=== PATIENT | female | born 1945 | race Hispanic/Latino ===

== ENCOUNTER 2018-04-25 00:08 | Observation (INO) | payer SELFPAY ==
[2018-04-25] MEDS ORDERED: Ondansetron PF 4 MG/2 ML Vial ONE ×2 (00:42→10:00)
[2018-04-25 00:56] LABS: #Eosinphils 0.1 thou/uL (0.0-0.7); #Lymphocytes 2.2 thou/uL (1.20-3.40); #Monocytes 1.1 thou/uL (0.11-0.59); #Neutrophils 12.6 thou/uL (1.40-6.50); %Basophils 0.3 % (0.0-1.0); %Eosinophils 0.5 % (0.0-10.0); %Lymphocytes 13.4 % (21.0-51.0); %Monocytes 6.6 % (0.0-10.0); %Neutrophils 79.2 % (42.0-75.0); Hemoglobin 14.3 g/dL (12.0-16.0); Mean Corpuscular HGB CONC 33.9 g/dL (32.0-36.0); Mean Corpuscular Hemoglobin 29.6 pg (27.0-31.0); Mean Corpuscular Volume 87.5 fL (78.0-98.0); Mean Platelet Volume 8.2 fL (7.4-10.4); Platelet Count 264 thou/uL (130-400); RBC Distribution Width 12.4 % (11.5-14.5); Red Blood Cell (RBC) Count 4.83 mill/uL (4.20-5.40)
[2018-04-25 01:24] LABS: ALT (SGPT) 22 U/L (8-55); AST (SGOT) 21 U/L (5-34); Albumin 4.3 g/dL (3.4-4.8); Alkaline Phosphatase 108 U/L (40-150); Anion Gap 11 mmol/L (10-20); BUN (Urea Nitrogen) 18 mg/dL (9.8-20.1); Bilirubin, Total 1.6 mg/dL (0.2-1.2); Calc. Creatinine Clearance 0 mL/min (70-130); Calcium 10.8 mg/dL (7.8-10.44); Carbon Dioxide 24 mmol/L (23-31); Chloride 106 mmol/L (98-107); Estimated GFR-MDRD 73; Globulin 3.3 g/dL (2.4-3.5); Glucose 130 mg/dL (83-110); Lipase 18 U/L (8-78); Potassium 3.9 mmol/L (3.5-5.1); Protein, Total 7.6 g/dL (6.0-8.3); Sodium 137 mmol/L (136-145)
[2018-04-25] MEDS ORDERED: Morphine 4 MG/ML VIAL ONE (02:08)
[2018-04-25 02:33] LABS: Bilirubin Negative (Negative); Blood, Urine Small (Negative); Clarity CLEAR (Clear); Glucose, Urine (Dipstick) Negative (Negative); Leukocyte Small (Negative); Nitrite Negative (Negative); Protein, Urine (Dipstick) Negative (Neg-Trace); Specific Gravity, Urine 1.019 (1.002-1.036); pH, Urine 6.5 (5.0-9.0)
[2018-04-25 02:35] LABS: Bacteria/HPF 3+ HPF (None Seen); Hyaline Casts/LPF 0-3 HYALINE CAST LPF (0-3 Hyaline); Squamous Epithelial 0-3 HPF (0-3)
[2018-04-25] MEDS ORDERED: Piperacillin/Tazobactam 4.5 GM VIAL ONE (03:15)
[2018-04-25] MEDS ORDERED: Morphine 2 MG/ML SYRINGE SLOW IVP PRN ×2 (04:15→12:55)
[2018-04-25 04:24] VITALS: BMI 24.4
[2018-04-25] MEDS: Sodium Chloride 0.9% 1,000 ML IV SCH ×2 (04:40→11:24)
[2018-04-25 06:17] LABS: Lactic Acid 1.4 mmol/L (0.5-2.2)
[2018-04-25] MEDS ORDERED: Ondansetron PF 4 MG/2 ML Vial IVP PRN ×2 (08:41→12:55)
[2018-04-25] MEDS ORDERED: Acetaminophen 1,000 MG in Premix Bag 1 BAG IVPB PRN (08:41)
--- NOTE | 2018-04-25 08:57 | HP ---
CHIEF COMPLAINT: Right upper quadrant pain. HISTORY OF PRESENT ILLNESS: This is a 72-year-old female who presents with severe pain in right upper quadrant, described as 8/10 and sharp, associated with nausea and vomiting. She has had similar pains in the past, intermittent, especially after heavier foods. Seen in the emergency department when ultrasound shows a gallstone in the neck of the gallbladder, mildly dilated common bile duct. She has a mild elevation of her total bilirubin. Denies history of jaundice or pancreatitis. PAST MEDICAL HISTORY: She denies. PAST SURGICAL HISTORY: . MEDICATIONS: Medicines taken daily, none. ALLERGIES: NO KNOWN DRUG ALLERGIES. SOCIAL HISTORY: No smoking, alcohol, or other drugs. REVIEW OF SYSTEMS: A 10-system review of systems otherwise negative unless described above. PHYSICAL EXAMINATION: VITAL SIGNS: Blood pressure 130/69, pulse 69, respirations 18, temperature 97.5. HEENT: Sclerae anicteric. Oropharynx is clear. NECK: No lymphadenopathy. CHEST: Clear. HEART: Regular rate and rhythm. ABDOMEN: Soft, tender in the right upper quadrant with localized guarding. No rebound. No abdominal hernias. EXTREMITIES: No ischemia or edema to extremities. LABORATORY DATA: White cell count is 16, hemoglobin is 14, platelet count is 264. Creatinine 0.78. Bilirubin is 1.6. Otherwise LFTs, lipase all normal. Ultrasound shows mildly dilated common bile duct, gallstone in the neck of the gallbladder, mild pericholecystic fluid, and gallbladder wall thickening. ASSESSMENT: Acute cholecystitis. PLAN: Laparoscopic cholecystectomy with intraoperative cholangiogram. Risks, benefits, and alternatives were discussed. She gives consent. We will do this today. Job ID: [id number]
--- NOTE | 2018-04-25 09:22 | ULT ---
PRELIMINARY REPORT/[facility]/EMERGENCY AFTER HOURS PROCEDURE: EXAM: US Abdomen Limited, Right Upper Quadrant EXAM DATE/TIME: 04/25/2018 2:26 AM CLINICAL HISTORY: 72 years old, female; Pain; Other: Ruq pain, fever, elevated wbcs and t-bili TECHNIQUE: Real-time ultrasound of the abdomen with image documentation. Examination was focused on the right up per quadrant. COMPARISON: No relevant prior studies available. FINDINGS: Liver: Echogenic/fatty. No acute findings. No mass. Gallbladder: Hydropic gallbladder. 2.2 cm gallstone within the gallbladder neck. Gallbladder wall thi ckening and pericholecystic fluid. Positive Arce's sign. Findings are compatible with acute cholecy stitis. Common bile duct: Measures 0.65 cm in diameter. Pancreas: Visualized pancreas is unremarkable. Right kidney: No acute findings. No mass. No hydronephrosis. IMPRESSION: Cholelithiasis and acute cholecystitis. Thank you for allowing us to participate in the care of your patient. Dictated and Authenticated by: Delfino Bond MD 04/25/2018 4:35 AM Central Time ([place] & [place]) FINAL REPORT EMERGENT AFTER HOURS RIGHT UPPER QUADRANT ABDOMINAL ULTRASOUND: FINDINGS/IMPRESSION: 1. I agree with the findings and impression given in the preliminary report per [facility] physician. Ch olelithiasis with findings suggesting acute cholecystitis. 2. Fatty liver. POS: [facility]
[2018-04-25] MEDS ORDERED: Dexamethasone 20 MG/5 ML VIAL ONE (10:00)
[2018-04-25] MEDS ORDERED: Succinylcholine Chloride 20 MG/ML 10 ml SYRINGE FS ONE (10:00)
[2018-04-25] MEDS ORDERED: Glycopyrrolate 0.2 MG/ML 5 ML SYRINGE ONE (10:00)
[2018-04-25] MEDS ORDERED: PROPOFOL 200 MG/20 ML VIAL ONE (10:00)
[2018-04-25] MEDS ORDERED: Lidocaine 1% PF 5 ML VIAL ONE (10:00)
--- NOTE | 2018-04-25 10:02 | RAD ---
SINGLE VIEW OF THE CHEST: COMPARISON: None. History Sepsis. FINDINGS: Single view of the chest shows a normal sized cardiomediastinal silhouette. There is no evidence of c onsolidation, mass, or pleural effusion. The bones are unremarkable. IMPRESSION: No evidence of acute cardiopulmonary disease. POS: [facility]
[2018-04-25] MEDS ORDERED: Bupivacaine/Epinephrine 0.25% 30 ML VIAL ONE (10:10)
[2018-04-25] MEDS ORDERED: Iothalamate Meglumine 60% 50 ML VIAL FS ONE (10:10)
[2018-04-25] MEDS ORDERED: Fentanyl 100 MCG/2 ML VIAL ONE (10:21)
[2018-04-25] MEDS ORDERED: ceFOXitin 1 GM VIAL ONE (10:34)
--- NOTE | 2018-04-25 11:46 | RAD ---
CHOLANGIOGRAM IN SURGERY: COMPARISON: Gallbladder ultrasound 04/25/2018. HISTORY: Cholecystitis with elevated LFTs. FINDINGS/IMPRESSION: Two limited intraoperative fluoroscopic views taken in the cholangiogram during surgery show contrast within the cystic duct, common bile duct, and duodenum. No filling defects are appreciated. POS: [facility]
[2018-04-25] MEDS ORDERED: Ondansetron HCl/PF 4 MG/2 ML Vial IVP PRN (12:02)
[2018-04-25] MEDS ORDERED: Mag-Al 1200 mg/1200 mg/30 ML UDCUP PO PRN (12:55)
[2018-04-25] MEDS ORDERED: HYDROcodone/Acetaminophen 10/325 mg Tablet PO PRN ×2 (12:55)
[2018-04-25] MEDS ORDERED: Dextrose 5% in Water 1,000 ML IV PRN (12:55)
[2018-04-25] MEDS ORDERED: Promethazine HCl 25 MG/ML VIAL IM PRN (12:55)
[2018-04-25] MEDS ORDERED: hydrALAZINE 20 MG/ML VIAL SLOW IVP PRN (12:55)
[2018-04-25] MEDS ORDERED: Dextrose 50% Abboject 50 ML SYRINGE SLOW IVP PRN (12:55)
[2018-04-25] MEDS ORDERED: Morphine 4 MG/ML VIAL SLOW IVP PRN (12:55)
[2018-04-25] MEDS ORDERED: Calcium Carbonate 500 MG ChewTAB PO PRN (12:55)
[2018-04-25] MEDS ORDERED: Sodium Chloride 0.9% 1,000 ML IV SCH (12:55)
--- NOTE | 2018-04-25 13:14 | OP ---
DATE OF PROCEDURE: 04/25/2018 PREOPERATIVE DIAGNOSIS: Acute cholecystitis. POSTOPERATIVE DIAGNOSIS: Acute cholecystitis. PROCEDURE: Laparoscopic cholecystectomy with intraoperative cholangiogram. ANESTHESIA: General. ESTIMATED BLOOD LOSS: Minimal. COMPLICATIONS: None. SPECIMEN: Gallbladder. FINDINGS: Normal cholangiogram. TECHNIQUE: The patient was taken to the operating room and laid supine on the operating room table. After general anesthetic was obtained, the abdomen was prepped and draped in a sterile fashion. A curved incision was made below the umbilicus. Cautery was used to dissect down to and score the fascia. Abdominal cavity was entered bluntly using a Melanie clamp. Holding stitch of PDS was placed on each side of the fascia. Saba trocar was placed. High-flow pneumoperitoneum was obtained. Upper midline 5 mm port and two right upper quadrant 5 mm ports were placed under direct visualization. Gallbladder was retracted from the gallbladder fossa. There was severe local inflammatory reaction. The peritoneum was opened anteriorly and posteriorly. Critical view triangle was seen showing only the cystic duct and cystic artery branching medial to lateral with no other branching structures. A clip was placed high on the cystic duct. A small ductotomy was made just proximal to that. A cholangiocatheter was brought in through a separate stab incision and placed in the cystic duct. A cholangiogram was performed, which showed good contrast flow into the duodenum and right and left hepatic duct system without obstruction. The cholangiocatheter was removed. Two clips were placed proximally on the cystic duct. It was cut using laparoscopic scissors. Cystic artery was taken in the same way. Cautery was used to dissect the gallbladder out of the gallbladder fossa. Gallbladder was placed in an Endo Catch bag and brought out through the Saba. There was minimal bleeding in the liver bed and controlled with cautery. No injury to any intraabdominal structures. Right upper quadrant was irrigated until returns were clear. There was no ongoing bleeding. All port sites were infiltrated using local anesthetic. All ports were removed under camera visualization. Pneumoperitoneum was let down. PDS was used to close the fascial defect below the umbilicus. All incisions were irrigated and closed using 4-0 Monocryl and Dermabond. The patient was sent to Recovery in stable condition. All instrument counts, needle counts, and lap counts were correct. Job ID: [id number]
[2018-04-25 14:30] VITALS: BP 129/69; TEMP 97.6
[2018-04-25] MEDS ORDERED: Famotidine 20 MG TAB PO SCH (21:00)
[2018-04-25] MEDS ORDERED: Famotidine/PF 20 mg/2ml Vial SLOW IVP SCH (21:00)
--- NOTE | 2018-04-27 14:04 | EKG ---
Test Reason : Blood Pressure : / mmHG Vent. Rate : 076 BPM Atrial Rate : 076 BPM P-R Int : 178 ms QRS Dur : 078 ms QT Int : 370 ms P-R-T Axes : 022 010 017 degrees QTc Int : 416 ms Normal sinus rhythm Normal ECG Confirmed by JEFFREY NICHOLE DO ([id number]), story editor SUZE GAVIRIA ([id number]) on 04/27/2018 2:04:21 PM Referred By: Confirmed By:JEFFREY NICHOLE DO
== END 2018-04-25 14:50 | disposition home or self-care (01) ==
LOC: ERS 00:08 → SURG A 03:11
PROVIDERS: ADMIT Surgery; ATTEND Surgery
PROC: 0FT44ZZ Resection of Gallbladder, Percutaneous Endoscopic Approach (ICD-10-PCS; principal; 2018-04-25)
PROC: BF10YZZ Fluoroscopy of Bile Ducts using Other Contrast (ICD-10-PCS; 2018-04-25)
DX: K80.12 Calculus of gallbladder with acute and chronic cholecystitis without obstruction (principal)
CPT/HCPCS: 36415; 47532; 71045; 76705; 80053; 81003; 81015; 83605; 83690; 84484; 85025; 87077; 87086; 87186; 88304; 93005; 94760; 96361; 96365; 96375; 96376; G0378; J0694; J1100; J2001; J2270; J2405; J2543; J2704; J3010; Q9961

== ENCOUNTER 2021-06-13 21:09 | Emergency (ER) | payer SELFPAY ==
[2021-06-13] MEDS ORDERED: Acetaminophen 500 MG TAB ONE (21:37)
[2021-06-13] MEDS ORDERED: Ondansetron PF 4 MG/2 ML Vial ONE (21:37)
[2021-06-13 21:41] LABS: #Basophils 0.1 thou/uL (0.0-0.2); #Eosinphils 0.3 thou/uL (0.0-0.7); #Lymphocytes 3.6 thou/uL (1.20-3.40); #Monocytes 0.9 thou/uL (0.11-0.59); #Neutrophils 7.8 thou/uL (1.40-6.50); %Eosinophils 2.6 % (0.0-10.0); %Monocytes 7.3 % (0.0-10.0); %Neutrophils 61.1 % (42.0-75.0); Hemoglobin 13.2 g/dL (12.0-16.0); Mean Corpuscular HGB CONC 34.4 g/dL (32.0-36.0); Mean Corpuscular Hemoglobin 30.5 pg (27.0-31.0); Mean Corpuscular Volume 88.7 fL (78.0-98.0); Mean Platelet Volume 7.5 fL (7.4-10.4); Platelet Count 317 thou/uL (130-400); RBC Distribution Width 12.3 % (11.5-14.5); Red Blood Cell (RBC) Count 4.31 mill/uL (4.20-5.40); White Blood Cell (WBC) Count 12.7 thou/uL (4.8-10.8)
[2021-06-13 21:58] LABS: ALT (SGPT) 20 U/L (8-55); AST (SGOT) 15 U/L (5-34); Albumin 4.2 g/dL (3.4-4.8); Alkaline Phosphatase 114 U/L (40-110); Anion Gap 13 mmol/L (10-20); BUN (Urea Nitrogen) 20 mg/dL (9.8-20.1); Bilirubin, Total 0.4 mg/dL (0.2-1.2); Calc. Creatinine Clearance 0 mL/min (70-130); Carbon Dioxide 24 mmol/L (23-31); Chloride 107 mmol/L (98-107); Globulin 3.5 g/dL (2.4-3.5); Glucose 118 mg/dL (83-110); Potassium 3.7 mmol/L (3.5-5.1); Protein, Total 7.7 g/dL (5.8-8.1); Sodium 140 mmol/L (136-145)
[2021-06-13] MEDS ORDERED: Ketorolac Tromethamine 30 MG/ML VIAL ONE (22:27)
[2021-06-13 22:51] LABS: Bacteria/HPF 4+ HPF (None Seen); Bilirubin Negative (Negative); Blood, Urine Negative (Negative); Clarity Clear (Clear); Glucose, Urine (Dipstick) Normal (Negative); Ketone, Urine Negative (Negative); Leukocyte 25 Leu/uL (Negative); Nitrite Negative (Negative); Protein, Urine (Dipstick) Negative (Neg-Trace); RBC/HPF 0-3 HPF (0-3); Specific Gravity, Urine 1.013 (1.002-1.036); Squamous Epithelial 0-3 HPF (0-3); Urobilinogen Normal mg/dL (Less than 2)
[2021-06-14 14:02] LABS: SARS-CoV-2 PCR by NAA Not Detected (NotDetected)
== END 2021-06-13 23:14 | disposition home or self-care (01) ==
LOC: ERS 21:09
DX: N30.00 Acute cystitis without hematuria (principal); Z20.822 Contact with and (suspected) exposure to COVID-19
CPT/HCPCS: 36415; 71045; 80053; 81003; 81015; 83605; 85025; 87040; 87077; 87086; 87186; 93005; 96374; 96375; J1885; J2405; U0003; U0005